=== PATIENT | male | born 1980 | race African-American/Black ===

== ENCOUNTER 2017-07-22 23:44 | Emergency (ER) | payer SELFPAY ==
[~2017-07-22] VITALS: Ht 172.7 cm; Wt 64.6 kg
[~2017-07-22 23:44] MED LIST: PREDNISONE20 MG PO; ZITHROMAX 250M250 MG PO
[2017-07-22 23:46] VITALS: BP 153/86; TEMP 98.1
[2017-07-23] MEDS ORDERED: PROAIR HFA0.09 MG/AC IH (00:10)
[2017-07-23 00:36] VITALS: PULSE 68
== END 2017-07-23 00:36 | disposition home or self-care (01) ==
LOC: COL.ER 23:44
DX: J45.901 Unspecified asthma with (acute) exacerbation (principal); Z79.52 Long term (current) use of systemic steroids
CPT/HCPCS: J8540

== ENCOUNTER 2017-08-19 23:23 | Emergency (ER) | payer SELFPAY ==
[~2017-08-19] VITALS: Ht 172.7 cm; Wt 70.9 kg
[~2017-08-19 23:23] MED LIST changes: +PROAIR HFA0.09 MG/AC IH
[2017-08-19 23:31] VITALS: TEMP 98.7
[2017-08-20] MEDS ORDERED: MAGIC MOUTH PO (00:57)
[2017-08-20 01:00] VITALS: PULSE 72
[2017-08-20] MEDS ORDERED: PRIL40 PO (01:02)
== END 2017-08-20 01:05 | disposition home or self-care (01) ==
LOC: COL.ER 23:23
DX: K21.9 Gastro-esophageal reflux disease without esophagitis (principal); J03.90 Acute tonsillitis, unspecified; F17.210 Nicotine dependence, cigarettes, uncomplicated

== ENCOUNTER 2017-08-28 23:23 | Emergency (ER) | payer SELFPAY ==
[~2017-08-28 23:23] MED LIST changes: +MAGIC MOUTH PO; +PRIL40 PO
[2017-08-28] MEDS ORDERED: PROAIR HFA0.09 MG/AC IH (23:50)
[2017-08-28] MEDS ORDERED: PREDNISONE20 MG PO (23:50)
[2017-08-28] MEDS ORDERED: PROTONIX 40MG T40 MG PO (23:50)
[2017-08-29 01:28] VITALS: BP 133/85
[2017-08-29 01:50] VITALS: PULSE 100; TEMP 98.4
== END 2017-08-29 01:50 | disposition home or self-care (01) ==
LOC: COL.ER 23:23
DX: J45.909 Unspecified asthma, uncomplicated (principal); K21.9 Gastro-esophageal reflux disease without esophagitis; F17.210 Nicotine dependence, cigarettes, uncomplicated
CPT/HCPCS: J7512

== ENCOUNTER 2017-11-08 19:38 | Emergency (ER) | payer SELFPAY ==
[~2017-11-08] VITALS: Ht 172.7 cm; Wt 72.7 kg
[~2017-11-08 19:38] MED LIST changes: +PROTONIX 40MG T40 MG PO
[2017-11-08 19:43] VITALS: TEMP 98
[2017-11-08] MEDS ORDERED: RT ADVAIR HFA 2312 G IH (20:07)
[2017-11-08 20:40] VITALS: BP 134/71; PULSE 81
== END 2017-11-08 20:51 | disposition home or self-care (01) ==
LOC: COL.ER 19:38
DX: J45.901 Unspecified asthma with (acute) exacerbation (principal); K21.9 Gastro-esophageal reflux disease without esophagitis; F17.210 Nicotine dependence, cigarettes, uncomplicated

== ENCOUNTER 2017-11-24 16:56 | Emergency (ER) | payer SELFPAY ==
[~2017-11-24] VITALS: Ht 172.7 cm; Wt 72.7 kg
[~2017-11-24 16:56] MED LIST changes: +RT ADVAIR HFA 2312 G IH
[2017-11-24 16:59] VITALS: TEMP 98.9
[2017-11-24 17:59] LABS: BASO % 0.6 % (0.0-2.0); EOS # 0.2 (0.0-0.7); GRAN # 3.4 (1.4-6.5); GRAN % 53.6 % (42.2-75.2); HEMOGLOBIN 14.3 g/dl (13.5-18.0); LYMPH # 1.9 (1.2-3.4); LYMPH % 30.1 % (20.0-51.0); MEAN CELL VOLUME 89 fl (80.0-100.0); MEAN CORPUSCULAR HEMOGLOBIN 30 pg (27.0-31.0); MEAN CORPUSCULAR HGB CONC 34 g/dl (33.0-37.0); MEAN PLATELET VOLUME 9.6 fl (7.4-10.4); MONO # 0.8 (0.1-0.6); MONO % 12.4 % (1.7-9.3); PLATELET COUNT 213 K/mm3 (130-400); RED BLOOD COUNT 4.73 M/mm3 (4.20-5.60)
[2017-11-24 18:09] LABS: ANION GAP 14 mmol/L (7-16); BLOOD UREA NITROGEN 11 mg/dL (9-20); CALCIUM 9.5 mg/dL (8.4-10.2); CARBON DIOXIDE 24 mmol/L (22-30); CHLORIDE 100 mmol/L (98-107); CREATININE, serum 1.02 mg/dL (0.66-1.25); GLUCOSE 87 mg/dL (74-106); POTASSIUM 4.1 mmol/L (3.4-5.0); SODIUM 138 mmol/L (137-145)
[2017-11-24 18:21] LABS: TROPONIN-I < 0.012 ng/mL (0.000-0.034)
[2017-11-24 18:33] VITALS: BP 114/82; PULSE 84
== END 2017-11-24 18:34 | disposition home or self-care (01) ==
LOC: COL.ER 16:56
PROVIDERS: Emergency Medicine
DX: F14.90 Cocaine use, unspecified, uncomplicated (principal); J45.909 Unspecified asthma, uncomplicated; F17.210 Nicotine dependence, cigarettes, uncomplicated; Z79.51 Long term (current) use of inhaled steroids

== ENCOUNTER 2017-12-04 01:41 | Emergency (ER) | payer SELFPAY ==
[~2017-12-04] VITALS: Ht 172.7 cm; Wt 72.7 kg
[2017-12-04 01:49] VITALS: TEMP 98.6
[2017-12-04 03:30] LABS: BASO % 0.4 % (0.0-2.0); EOS # 0.3 (0.0-0.7); EOS % 3.8 % (0-4.0); GRAN # 3.5 (1.4-6.5); GRAN % 51.7 % (42.2-75.2); HEMATOCRIT 39.4 % (42.0-52.0); HEMOGLOBIN 13.1 g/dl (13.5-18.0); LYMPH # 2.3 (1.2-3.4); LYMPH % 33.5 % (20.0-51.0); MEAN CELL VOLUME 90 fl (80.0-100.0); MEAN CORPUSCULAR HEMOGLOBIN 30 pg (27.0-31.0); MEAN CORPUSCULAR HGB CONC 33 g/dl (33.0-37.0); MEAN PLATELET VOLUME 9.8 fl (7.4-10.4); MONO # 0.7 (0.1-0.6); MONO % 10.5 % (1.7-9.3); PLATELET COUNT 218 K/mm3 (130-400); RED BLOOD COUNT 4.38 M/mm3 (4.20-5.60); REDCELL DISTRIBUTION WIDTH-CV 12.7 % (11.5-14.5)
[2017-12-04] MEDS ORDERED: PREDNISONE20 MG PO (03:32)
[2017-12-04] MEDS ORDERED: ZITHROMAX 250M250 MG PO (03:32)
[2017-12-04 03:39] LABS: ALBUMIN 4.2 gm/dL (3.5-5.0); BILIRUBIN,TOTAL 0.3 mg/dL (0.0-1.0); CALCIUM 8.7 mg/dL (8.4-10.2); CREATININE, serum 1.13 mg/dL (0.66-1.25); POTASSIUM 3.4 mmol/L (3.4-5.0); TOTAL PROTEIN 7.8 gm/dL (6.4-8.2)
[2017-12-04 06:35] VITALS: BP 105/72; PULSE 78
== END 2017-12-04 06:34 | disposition home or self-care (01) ==
LOC: COL.ER 01:41
PROVIDERS: Nurse Practitioner
DX: J45.909 Unspecified asthma, uncomplicated (principal); F17.210 Nicotine dependence, cigarettes, uncomplicated; F12.90 Cannabis use, unspecified, uncomplicated
CPT/HCPCS: J2405; J7030; J7512